=== PATIENT | female | born 1950 | race Caucasian/White ===

== ENCOUNTER 2017-12-28 21:04 | Emergency (ER) | payer OTHER ==
[~2017-12-28] VITALS: Ht 160 cm; Wt 63.5 kg
[2017-12-28 21:22] VITALS: BP 109/72
--- NOTE | 2017-12-28 21:25 | NUR ---
TO LOBBY A/W BED, AMBULATORY, VSS, YONI NOTED
--- NOTE | 2017-12-28 22:16 | NUR ---
PATIENT AMBULATED TO ER BED 3
[2017-12-28] MEDS ORDERED: predniSONE 20 MG TAB PO ONE (22:20)
[2017-12-28] MEDS ORDERED: KETOROLAC 30 MG/ML VIAL IM ONE (22:20)
--- NOTE | 2017-12-28 22:57 | NUR ---
aC/O REDNESS, SWELLING , PAIN ON HER RT HAND , S/P INSECT BITE YESTERDAY NO OTHER COMPLAINTS AT THIS TIME. PT A/OX4. HR REGULAR/EVEN. BREATH SOUNDS CLEAR BILATERALLY. NO ACUTE DISTRESS NOTED. PT SITTING IN BED, SIDERAIL UP. ER MD MADE AWARE OF STATUS.
[2017-12-28 23:06] VITALS: BP 112/51
--- NOTE | 2017-12-28 23:06 | NUR ---
Patient discharged with v/s stable. Written and verbal after care instructions given and explained. Patient alert, oriented and verbalized understanding of instructions. Ambulatory with steady gait. All questions addressed prior to discharge. ID band removed. Patient advised to follow up with PMD. Rx of KEFLEX, PREDNISONE, BENADRYL, AND MOTRIN given. Patient educated on indication of medication including possible reaction and side effects. Opportunity to ask questions provided and answered.
== END 2017-12-28 23:06 | disposition home or self-care (01) ==
LOC: MED 21:04
DX: S60.561A Insect bite (nonvenomous) of right hand, initial encounter (principal); T78.40XA Allergy, unspecified, initial encounter; W57.XXXA Bitten or stung by nonvenomous insect and other nonvenomous arthropods, initial encounter; Y93.89 Activity, other specified; Y92.89 Other specified places as the place of occurrence of the external cause; Y99.8 Other external cause status
CPT/HCPCS: 96372; 99283; J1885; J7512; Q0163